=== PATIENT | male | born 1980 | race Caucasian/White ===

== ENCOUNTER 2017-04-08 22:36 | Emergency (ER) | payer OTHER ==
[~2017-04-08] VITALS: Ht 172.7 cm; Wt 103.2 kg
[2017-04-09 00:39] LABS: HEMATOCRIT 41.9 % (38.0-50.0); MCH 29.5 PG (29.0-34.0); MCHC 34.6 G/DL (30.0-36.0); MCV 85.2 FL (86-99); MEAN PLAT.VOLUME 9.9 uM^3 (9.0-12.4); PLATELET COUNT 250 K/uL (156-360); RBC DIS.WIDTH-CV 13.2 % (11.8-14.6); RBC DIS.WIDTH-SD 40.5 % (39-53); RED BLOOD COUNT 4.92 M/uL (4.00-5.50); WHITE BLOOD COUNT 7.4 K/uL (4.1-10.2)
[2017-04-09 00:51] LABS: CHLORIDE 104 mEq/L (99-109); POTASSIUM 4.2 mEq/L (3.7-5.4); SODIUM 139 mEq/L (136-147)
[2017-04-09 00:53] LABS: GLUCOSE 111 mg/dL (70-99)
[2017-04-09 00:54] LABS: ANION GAP 11 MEQ/L (2-14)
[2017-04-09 00:55] LABS: TOTAL BILIRUBIN 0.4 mg/dL (0.0-1.0)
[2017-04-09 00:56] LABS: ALKALINE PHOSPHATASE 90 IU/L (3-129)
[2017-04-09 00:57] LABS: GFR ESTIMATE (CALCULATED) > 59 mL/min/ (58.99-99999)
[2017-04-09 00:58] LABS: UREA NITROGEN (BUN) 18 mg/dL (9-23)
[2017-04-09 01:00] LABS: LIPASE 39 U/L (1.0-51.0)
[2017-04-09 01:05] LABS: ADD MIUA? NO; BILIRUBIN NEGATIVE; BLOOD NEGATIVE; COLOR YELLOW ((YELLOW)); GLUCOSE (STRIP) NEGATIVE; KETONES 5; LEUKOCYTES NEGATIVE; NITRITE NEGATIVE; PROTEIN (STRIP) NEGATIVE; SPECIFIC GRAVITY 1.021 (1.000-1.030); UCUL ADDED? NO; UROBILINOGEN 0.2 MG/DL (0.2-1.0)
[2017-04-09] MEDS ORDERED: FLAGYL500 MG PO (01:55)
[2017-04-09] MEDS ORDERED: TRAMADOL HCL50 MG PO (01:55)
[2017-04-09] MEDS ORDERED: ZOFRAN4 MG PO (01:55)
[2017-04-09] MEDS ORDERED: CIPRO500 MG PO (01:55)
[2017-04-09 02:03] VITALS: BP 135/97
== END 2017-04-09 02:03 | disposition home or self-care (01) ==
LOC: EME 22:36
PROVIDERS: Physician Assistant
DX: K57.30 Diverticulosis of large intestine without perforation or abscess without bleeding (principal); Z83.79 Family history of other diseases of the digestive system
CPT/HCPCS: 74176; 80053; 81003; 83690; 85027; 99281; 99284